=== PATIENT | female | born 1980 | race Caucasian/White ===

== ENCOUNTER → 2020-03-02 13:17 | Outpatient (CLI) | payer OTHER, SELFPAY ==
--- NOTE | ~2020-03-02 | XR_ITS ---
EXAMINATION: XR lumbar spine 2-3V DATE: 03/02/2020 13:46 INDICATION: Low back pain TECHNIQUE: Anteroposterior and lateral views of the lumbar spine, and cone-down lateral view of the l umbosacral junction were obtained. COMPARISON: 12/21/2015 FINDINGS: There are 2 mm of retrolisthesis of L5 on S1. The vertebral body heights are normal. There is no fracture. The intervertebral disc spaces are maintained. There is a moderate volume of colonic stool. IMPRESSION: 1. Mild lumbar spondylosis at L5-S1 without acute findings. Reviewed, dictated and finalized at location A. 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
== END ==
DX: M47.896 Other spondylosis, lumbar region (principal)
CPT/HCPCS: 72100

== ENCOUNTER → 2020-04-30 13:26 | Outpatient (CLI) | payer OTHER, SELFPAY ==
--- NOTE | ~2020-04-30 | US_ITS ---
EXAMINATION: US thyroid DATE: 04/30/2020 13:44 INDICATION: Hypothyroidism. TECHNIQUE: Multiple ultrasound images of the thyroid were obtained. COMPARISON: None. FINDINGS: The right thyroid lobe measures 5.4 x 1.6 x 1.3 cm. The left thyroid lobe measures 3.9 x 1.0 x 1.1 c m. The thyroid demonstrates diffusely coarsened echotexture and increased vascularity. IMPRESSION: 1. Heterogeneous, hypervascular thyroid, likely chronic lymphocytic (Muriel) thyroiditis. Reviewed, dictated and finalized at location A.
== END ==
PROVIDERS: PCP Physician Assistant; Visit Provider Physician Assistant
DX: R94.6 Abnormal results of thyroid function studies (principal)
CPT/HCPCS: 76536

== ENCOUNTER → 2021-04-17 13:47 | Outpatient (CLI) | payer OTHER, SELFPAY ==
--- NOTE | ~2021-04-17 | XR_ITS ---
XR hip LT min 2V DATE: 04/17/2021 14:37 INDICATION: Recurrent left hip pain TECHNIQUE: AP and lateral views COMPARISON: None FINDINGS: The pubic symphysis and sacrum joints appear intact. No fracture or dislocation, avascular necrosis or bone destruction of the left hip. Left hip joint sp yehuda appears relatively reserved. IMPRESSION: Negative left hip Reviewed, dictated and finalized at location A. EL JOURNALIST IMPRESSION: Negative left hip
== END ==
DX: M25.552 Pain in left hip (principal)
CPT/HCPCS: 73502

== ENCOUNTER → 2022-06-04 11:05 | Outpatient (CLI) | payer OTHER, SELFPAY ==
--- NOTE | ~2022-06-04 | US_ITS ---
Thyroid ultrasound. Clinical History: Goiter Findings: Real-time sonography of the thyroid gland was performed. The right lobe measures 5.6 x 2.1 x 1.7 cm. The left lobe measures 3.9 x 1.2 x 1.3 cm. The isthmus is 2 mm in AP diameter. Thyroid parenchyma is heterogeneous. There is a 4 mm hypoechoic or cystic nodule at the right upper p ole. No other thyroid nodule seen. Impression: No significant abnormality evident. Reviewed, dictated and finalized at location M. Impression: No significant abnormality evident.
== END ==
PROVIDERS: PCP Internal Medicine; Visit Provider Internal Medicine Endocrinology, Diabetes & Metabolism
DX: E04.9 Nontoxic goiter, unspecified (principal)
CPT/HCPCS: 76536